=== PATIENT | female | born 1960 | race Caucasian/White ===

== ENCOUNTER 2020-11-13 18:21 | Inpatient (IN) | payer OTHER ==
[~2020-11-13] VITALS: Ht 162.6 cm; Wt 64.0 kg
[2020-11-13 19:37] LABS: Basophils # (auto) 0 10 ^3/uL (0-0.2); Basophils % (auto) 0.1 % (0.0-2.0); Eosinophils # (auto) 0 10 ^3/uL (0-0.8); Hematocrit 47.4 % (36.0-46.0); Hemoglobin 15.8 g/dL (12.2-16.2); Lymphocytes # (auto) 0.3 10 ^3/uL (0.4-5.4); Lymphocytes % (auto) 1.5 % (10.0-50.0); Mean Corpuscular Hemoglobin 30.2 pg (28.0-32.0); Mean Corpuscular Hgb Conc. 33.3 g/dL (32.0-36.0); Mean Corpuscular Volume 90.8 fL (80.0-100.0); Monocytes # (auto) 0.8 10 ^3/uL (0-1.3); Monocytes % (auto) 3.8 % (0.0-12.0); Neutrophils # (auto) 20.6 10 ^3/uL (1.6-8.6); Neutrophils % (auto) 94.6 % (37.0-80.0); Red Blood Cells 5.22 10^6/uL (4.0-5.20); Red Cell Distribution Width 13.1 % (11.8-14.3); White Blood Cell 21.8 10^3/uL (4.4-10.8)
[2020-11-13] MEDS ORDERED: SODIUM CHLORIDE 0.9% 1,000 ML IV ONE (19:45)
[2020-11-13] MEDS ORDERED: PANTOPRAZOLE 40 MG/10 ML VIAL INJ IV ONE (19:45)
[2020-11-13] MEDS ORDERED: PANTOPRAZOLE 40mg/50ML NS AE 50 ML IV ONE (19:45)
[2020-11-13 19:55] LABS: Alanine Aminotransferase 64 U/L (13-56); Albumin 4.3 g/dL (3.4-5.0); Anion Gap 9 (5-15); Aspartate Aminotransferase 113 U/L (15-37); BUN/Creatinine Ratio 24.3; Blood Alcohol < 3.0 mg/dL (0-5); Blood Urea Nitrogen 37 mg/dL (7-18); Calcium 9.2 mg/dL (8.5-10.1); Carbon Dioxide 26 mmol/L (21-32); Chloride 104 mmol/L (98-107); GFR African American 45 mL/min; GFR Non-African American 37 mL/min; Glucose 160 mg/dL (74-106); Magnesium 2.4 mg/dL (1.6-2.6); Potassium 4.1 mmol/L (3.5-5.1); Salicylate < 1.7 mg/dL (2.8-20.0); Sodium 139 mmol/L (136-145)
[2020-11-13 20:00] LABS: Acetaminophen 11.2 ug/mL (10-30)
[2020-11-13 20:06] LABS: Alkaline Phosphatase 128 U/L (45-117); Bilirubin, Total 0.5 mg/dL (0.2-1.0); Total Protein 8.3 g/dL (6.4-8.2)
[2020-11-13 20:45] LABS: Urine Bacteria NONE SEEN /hpf (None Seen); Urine Blood Negative /uL (Negative); Urine Hyaline Cast MANY /lpf (0 - 2); Urine Mucus FEW (None Seen); Urine Specific Gravity 1.036 (1.001-1.035); Urine WBC 2 /hpf (0 - 5)
[2020-11-13 21:12] LABS: Alcohol, Urine < 3.0 mg/dL (0-10); Amphetamine Screen, Urine NEGATIVE (NEGATIVE); Barbiturate Scree,Urine NEGATIVE (NEGATIVE); Benzodiazephine Screen, Urine NEGATIVE (NEGATIVE); Cannabinoid Screen, Urine NEGATIVE (NEGATIVE); Cocaine Screen, Urine NEGATIVE (NEGATIVE); Opiate Scree,Urine POSITIVE (NEGATIVE); Phencyclidine Screen, Urine NEGATIVE (NEGATIVE)
[2020-11-13 21:40] LABS: INR 1.05 (0.9-1.15); Partial Thromboplastin Time 24.5 sec (23.0-31.2)
[2020-11-14] MEDS ORDERED: HYDROcodone-ACET 5/325MG TAB PO PRN (01:15)
[2020-11-14] MEDS ORDERED: MORPHINE SULFATE 4 MG/ML SYR/VIAL IV PRN (01:15)
[2020-11-14] MEDS ORDERED: DOCUSATE SOD 100 MG CAP PO PRN (01:15)
[2020-11-14] MEDS ORDERED: NITROGLYCERIN 0.4 MG SL TAB SL PRN (01:15)
[2020-11-14] MEDS ORDERED: MORPHINE SULFATE INJECTION 2 MG/ML SYRG IV PRN (01:15)
[2020-11-14] MEDS ORDERED: DEXTROSE (50%) 50ML SYRG IV PRN (01:15)
[2020-11-14] MEDS ORDERED: ACETAMINOPHEN 325 MG TAB PO PRN (01:15)
[2020-11-14] MEDS ORDERED: SOD CHL 0.45% 1,000 ML IV SCH (01:30)
[2020-11-14] MEDS: DOXYCYCLINE 100MG/250ML 250 ML IV SCH ×2 (02:31→13:05)
[2020-11-14 02:41] VITALS: BP 114/83
[2020-11-14] MEDS ORDERED: HYDR-4902 PO (03:27)
[2020-11-14] MEDS: ACCU-CHEK COMFORT CURVE STRIP VI SCH ×4 (06:02→22:00)
[2020-11-14] MEDS: InsuLIN REG 1unit/0.01ml Soln (100units/ml) SC SCH ×3 (06:02→17:56)
[2020-11-14 08:05] VITALS: BP 114/71
[2020-11-14 08:28] LABS: Basophils # (auto) 0.1 10 ^3/uL (0-0.2); Basophils % (auto) 0.4 % (0.0-2.0); Eosinophils # (auto) 0 10 ^3/uL (0-0.8); Eosinophils % (auto) 0.2 % (0.0-7.0); Hematocrit 37.3 % (36.0-46.0); Hemoglobin 12.5 g/dL (12.2-16.2); Lymphocytes # (auto) 1.7 10 ^3/uL (0.4-5.4); Lymphocytes % (auto) 9.4 % (10.0-50.0); Mean Corpuscular Hemoglobin 30.1 pg (28.0-32.0); Mean Corpuscular Hgb Conc. 33.5 g/dL (32.0-36.0); Mean Corpuscular Volume 89.8 fL (80.0-100.0); Monocytes # (auto) 1.1 10 ^3/uL (0-1.3); Monocytes % (auto) 6.2 % (0.0-12.0); Neutrophils # (auto) 15.5 10 ^3/uL (1.6-8.6); Neutrophils % (auto) 83.8 % (37.0-80.0); Nucleated Red Blood Cells % 0.1 %; Red Blood Cells 4.15 10^6/uL (4.0-5.20); Red Cell Distribution Width 13.1 % (11.8-14.3); White Blood Cell 18.4 10^3/uL (4.4-10.8)
[2020-11-14 08:30] VITALS: BP 114/71
[2020-11-14 08:42] LABS: Albumin 3.3 g/dL (3.4-5.0); Potassium 4.3 mmol/L (3.5-5.1)
[2020-11-14 08:45] LABS: Bilirubin, Total 0.4 mg/dL (0.2-1.0); Total Protein 6.4 g/dL (6.4-8.2)
[2020-11-14] MEDS ORDERED: cefTRIAXone 1GM/50ML D5W 50 ML IV SCH (09:00)
[2020-11-14] MEDS: MULTIPLE VITAMIN TAB PO SCH (09:30)
[2020-11-14] MEDS: ZINC SULFATE 220mg CAP or TAB PO SCH (09:30)
[2020-11-14] MEDS: ASCORBIC ACID 500 MG TAB PO SCH ×2 (09:30→22:30)
[2020-11-14] MEDS: HEPARIN SODIUM (PORCINE) 5000 UNITS/ML 1ML VIAL SC SCH ×2 (09:32→22:32)
[2020-11-14] MEDS ORDERED: FAMOTIDINE (10MG/ML) 2ML VL IV SCH (10:00)
[2020-11-14] MEDS: ONDANSETRON HCL 4 MG/2 ML VIAL IV PRN (10:12)
[2020-11-14 12:30] VITALS: BP 118/78
[2020-11-14] MEDS ORDERED: SODIUM CHLORIDE 0.9% 1,000 ML IV ONE (13:15)
[2020-11-14 16:47] VITALS: BP 139/83
[2020-11-14] MEDS: PIPERACILLIN-TAZOB 3.375GM 100 ML IV SCH (17:56)
[2020-11-14] MEDS ORDERED: ZOLP12.52 PO (21:21)
[2020-11-14] MEDS ORDERED: OME20GT PO (21:21)
[2020-11-14] MEDS ORDERED: TRAZ1TAB12 PO (21:21)
[2020-11-14 21:51] LABS: Basophils # (auto) 0 10 ^3/uL (0-0.2); Basophils % (auto) 0.4 % (0.0-2.0); Eosinophils # (auto) 0.1 10 ^3/uL (0-0.8); Eosinophils % (auto) 0.8 % (0.0-7.0); Hematocrit 33.5 % (36.0-46.0); Hemoglobin 11.2 g/dL (12.2-16.2); Lymphocytes # (auto) 1.7 10 ^3/uL (0.4-5.4); Lymphocytes % (auto) 12.7 % (10.0-50.0); Mean Corpuscular Hemoglobin 30.3 pg (28.0-32.0); Mean Corpuscular Hgb Conc. 33.6 g/dL (32.0-36.0); Mean Corpuscular Volume 90.1 fL (80.0-100.0); Monocytes % (auto) 7.6 % (0.0-12.0); Neutrophils # (auto) 10.3 10 ^3/uL (1.6-8.6); Neutrophils % (auto) 78.5 % (37.0-80.0); Red Blood Cells 3.71 10^6/uL (4.0-5.20); Red Cell Distribution Width 13.3 % (11.8-14.3); White Blood Cell 13.1 10^3/uL (4.4-10.8)
[2020-11-14 22:00] VITALS: BP 116/75
[2020-11-14] MEDS ORDERED: InsuLIN REG 1unit/0.01ml Soln (100units/ml) SC SCH (22:00)
[2020-11-14 22:13] LABS: Albumin 3.2 g/dL (3.4-5.0); Calcium 8.1 mg/dL (8.5-10.1); Potassium 3.9 mmol/L (3.5-5.1)
[2020-11-14 22:16] LABS: BUN/Creatinine Ratio 31.2; Bilirubin, Total 0.4 mg/dL (0.2-1.0); Total Protein 6.1 g/dL (6.4-8.2)
[2020-11-14] MEDS: PANTOPRAZOLE 40 MG/10 ML VIAL INJ IV SCH (22:30)
[2020-11-14] MEDS ORDERED: ACETYLCYSTEINE PO FOR APAP TOX 200 MG/ML ML PO ONE (23:30)
[2020-11-15] MEDS: PIPERACILLIN-TAZOB 3.375GM 100 ML IV SCH ×4 (00:02→18:06)
[2020-11-15] MEDS ORDERED: ACETYLCYSTEINE PO FOR APAP TOX 200 MG/ML ML PO ONE (01:00)
[2020-11-15] MEDS ORDERED: ACETYLCYSTEINE PO FOR APAP TOX 200 MG/ML ML PO SCH (03:30)
[2020-11-15 05:00] VITALS: BP 134/75
[2020-11-15] MEDS: ACETYLCYSTEINE PO FOR APAP TOX 200 MG/ML ML PO SCH ×5 (05:29→21:01)
[2020-11-15] MEDS: InsuLIN REG 1unit/0.01ml Soln (100units/ml) SC SCH (06:01)
[2020-11-15] MEDS: ACCU-CHEK COMFORT CURVE STRIP VI SCH (06:02)
[2020-11-15 08:13] LABS: Basophils # (auto) 0.1 10 ^3/uL (0-0.2); Basophils % (auto) 0.5 % (0.0-2.0); Eosinophils # (auto) 0.2 10 ^3/uL (0-0.8); Eosinophils % (auto) 2.1 % (0.0-7.0); Lymphocytes % (auto) 17.5 % (10.0-50.0); Monocytes # (auto) 1.1 10 ^3/uL (0-1.3); Monocytes % (auto) 9.6 % (0.0-12.0); Neutrophils # (auto) 7.9 10 ^3/uL (1.6-8.6); Neutrophils % (auto) 70.3 % (37.0-80.0); Nucleated Red Blood Cells % 0.1 %
[2020-11-15 08:16] LABS: Hematocrit 36.3 % (36.0-46.0); Hemoglobin 11.6 g/dL (12.2-16.2); Mean Corpuscular Hemoglobin 30.5 pg (28.0-32.0); Mean Corpuscular Hgb Conc. 32.1 g/dL (32.0-36.0); Red Blood Cells 3.82 10^6/uL (4.0-5.20); Red Cell Distribution Width 13.8 % (11.8-14.3); White Blood Cell 11.1 10^3/uL (4.4-10.8)
[2020-11-15 08:23] LABS: Albumin 3.2 g/dL (3.4-5.0); Calcium 8.5 mg/dL (8.5-10.1); Magnesium 2.2 mg/dL (1.6-2.6); Potassium 3.6 mmol/L (3.5-5.1)
[2020-11-15 08:26] LABS: BUN/Creatinine Ratio 21.2; Bilirubin, Total 0.5 mg/dL (0.2-1.0); Total Protein 6.4 g/dL (6.4-8.2)
[2020-11-15 08:30] VITALS: BP 126/78
[2020-11-15] MEDS ORDERED: VANCOMYCIN PER PHARMACY 0 MG IV SCH (08:45)
[2020-11-15] MEDS ORDERED: VANCOMYCIN 500 MG in D5W 5% 100 ML IV SCH (09:00)
[2020-11-15] MEDS: ZINC SULFATE 220mg CAP or TAB PO SCH (09:59)
[2020-11-15] MEDS: ASCORBIC ACID 500 MG TAB PO SCH ×2 (09:59→22:21)
[2020-11-15] MEDS: VANCOMYCIN 1GM/250ML 250 ML IV SCH ×2 (09:59→21:01)
[2020-11-15] MEDS: MULTIPLE VITAMIN TAB PO SCH (09:59)
[2020-11-15] MEDS: PANTOPRAZOLE 40 MG/10 ML VIAL INJ IV SCH ×2 (10:00→22:21)
[2020-11-15] MEDS: HEPARIN SODIUM (PORCINE) 5000 UNITS/ML 1ML VIAL SC SCH ×2 (11:20→22:22)
[2020-11-15 13:27] VITALS: BP 125/79
[2020-11-15 17:10] VITALS: BP 122/76
[2020-11-15 22:00] VITALS: BP 124/78
[2020-11-15] MEDS: traZODone HCL 50 MG TAB PO SCH (22:21)
[2020-11-15 23:30] VITALS: BP 124/78
[2020-11-16] MEDS: PIPERACILLIN-TAZOB 3.375GM 100 ML IV SCH ×5 (00:15→23:43)
[2020-11-16 01:31] LABS: Alanine Aminotransferase 215 U/L (13-56); Aspartate Aminotransferase 126 U/L (15-37)
[2020-11-16 01:32] LABS: INR 1.04 (0.9-1.15)
[2020-11-16 02:14] VITALS: BP 124/78
[2020-11-16 05:00] VITALS: BP 123/74
[2020-11-16 07:25] LABS: Basophils # (auto) 0.1 10 ^3/uL (0-0.2); Basophils % (auto) 0.7 % (0.0-2.0); Eosinophils # (auto) 0.2 10 ^3/uL (0-0.8); Eosinophils % (auto) 2.4 % (0.0-7.0); Hematocrit 33.7 % (36.0-46.0); Hemoglobin 11.5 g/dL (12.2-16.2); Lymphocytes # (auto) 1.7 10 ^3/uL (0.4-5.4); Lymphocytes % (auto) 24.5 % (10.0-50.0); Mean Corpuscular Hemoglobin 30.3 pg (28.0-32.0); Mean Corpuscular Hgb Conc. 34.3 g/dL (32.0-36.0); Mean Corpuscular Volume 88.4 fL (80.0-100.0); Monocytes # (auto) 0.7 10 ^3/uL (0-1.3); Monocytes % (auto) 9.8 % (0.0-12.0); Neutrophils # (auto) 4.4 10 ^3/uL (1.6-8.6); Neutrophils % (auto) 62.6 % (37.0-80.0); Red Blood Cells 3.81 10^6/uL (4.0-5.20)
[2020-11-16 07:44] LABS: Potassium 3.3 mmol/L (3.5-5.1)
[2020-11-16 07:58] LABS: Albumin 2.9 g/dL (3.4-5.0); BUN/Creatinine Ratio 11.1; Bilirubin, Total 0.5 mg/dL (0.2-1.0); Calcium 8.5 mg/dL (8.5-10.1)
[2020-11-16 09:00] VITALS: BP 113/69
[2020-11-16] MEDS: VANCOMYCIN 1GM/250ML 250 ML IV SCH ×2 (09:57→22:09)
[2020-11-16] MEDS: PANTOPRAZOLE 40 MG/10 ML VIAL INJ IV SCH ×2 (09:59→22:18)
[2020-11-16] MEDS: MULTIPLE VITAMIN TAB PO SCH (09:59)
[2020-11-16] MEDS: ZINC SULFATE 220mg CAP or TAB PO SCH (09:59)
[2020-11-16] MEDS: ASCORBIC ACID 500 MG TAB PO SCH ×2 (10:00→22:19)
[2020-11-16] MEDS: HEPARIN SODIUM (PORCINE) 5000 UNITS/ML 1ML VIAL SC SCH ×2 (10:01→22:19)
[2020-11-16 13:00] VITALS: BP 122/76
[2020-11-16 17:00] VITALS: BP 135/90
[2020-11-16 22:00] VITALS: BP 124/78
[2020-11-16] MEDS: SERTRALINE HCL 50 MG TAB PO SCH (22:18)
[2020-11-16] MEDS: traZODone HCL 50 MG TAB PO SCH (22:18)
[2020-11-17 05:12] VITALS: BP 127/79
[2020-11-17] MEDS: PIPERACILLIN-TAZOB 3.375GM 100 ML IV SCH ×2 (05:46→12:00)
[2020-11-17 08:58] VITALS: BP 135/84
[2020-11-17] MEDS: MULTIPLE VITAMIN TAB PO SCH (09:56)
[2020-11-17] MEDS: ASCORBIC ACID 500 MG TAB PO SCH ×2 (09:58→22:21)
[2020-11-17] MEDS: ZINC SULFATE 220mg CAP or TAB PO SCH (09:58)
[2020-11-17] MEDS: SERTRALINE HCL 50 MG TAB PO SCH (09:58)
[2020-11-17] MEDS: HEPARIN SODIUM (PORCINE) 5000 UNITS/ML 1ML VIAL SC SCH ×2 (09:59→22:16)
[2020-11-17] MEDS: PANTOPRAZOLE 40 MG/10 ML VIAL INJ IV SCH ×2 (09:59→22:15)
[2020-11-17] MEDS: VANCOMYCIN 1GM/250ML 250 ML IV SCH (10:03)
[2020-11-17 13:00] VITALS: BP 114/71
[2020-11-17] MEDS ORDERED: MICAFUNGIN SODIUM 100 MG in SODIUM CHL 0.9% 100 ML IV ONE (16:30)
[2020-11-17 16:58] VITALS: BP 136/80
[2020-11-17] MEDS: ONDANSETRON HCL 4 MG/2 ML VIAL IV PRN ×2 (17:31→22:19)
[2020-11-17] MEDS: SUCRALFATE 1 GM/10 ML ORAL SUSP PO SCH ×2 (17:35→22:16)
[2020-11-17] MEDS ORDERED: VANCOMYCIN 1GM/250ML 250 ML IV SCH (20:00)
[2020-11-17 22:00] VITALS: BP 138/84
[2020-11-17] MEDS: AMOXICILLIN/CLAVUL 875 MG TAB PO SCH (22:20)
[2020-11-17] MEDS: traZODone HCL 50 MG TAB PO SCH (22:21)
[2020-11-18] VITALS (7 sets, daily range): BP systolic 127–146; BP diastolic 72–92
[2020-11-18] MEDS: SUCRALFATE 1 GM/10 ML ORAL SUSP PO SCH ×4 (06:12→22:10)
[2020-11-18] MEDS: ASCORBIC ACID 500 MG TAB PO SCH ×2 (09:22→22:11)
[2020-11-18] MEDS: MULTIPLE VITAMIN TAB PO SCH (09:22)
[2020-11-18] MEDS: ZINC SULFATE 220mg CAP or TAB PO SCH (09:23)
[2020-11-18] MEDS: MICAFUNGIN SODIUM 100 MG in SODIUM CHL 0.9% 100 ML IV SCH (09:24)
[2020-11-18] MEDS: SERTRALINE HCL 50 MG TAB PO SCH (09:26)
[2020-11-18] MEDS: HEPARIN SODIUM (PORCINE) 5000 UNITS/ML 1ML VIAL SC SCH ×2 (09:26→22:11)
[2020-11-18] MEDS: PANTOPRAZOLE 40 MG/10 ML VIAL INJ IV SCH ×2 (10:00→22:10)
[2020-11-18 10:52] LABS: Basophils # (auto) 0 10 ^3/uL (0-0.2); Basophils % (auto) 0.7 % (0.0-2.0); Eosinophils # (auto) 0.1 10 ^3/uL (0-0.8); Eosinophils % (auto) 2.3 % (0.0-7.0); Hemoglobin 11.8 g/dL (12.2-16.2); Lymphocytes # (auto) 1.5 10 ^3/uL (0.4-5.4); Lymphocytes % (auto) 23.9 % (10.0-50.0); Mean Corpuscular Hemoglobin 30.3 pg (28.0-32.0); Mean Corpuscular Hgb Conc. 33.8 g/dL (32.0-36.0); Mean Corpuscular Volume 89.6 fL (80.0-100.0); Monocytes # (auto) 0.6 10 ^3/uL (0-1.3); Monocytes % (auto) 9.9 % (0.0-12.0); Neutrophils # (auto) 3.9 10 ^3/uL (1.6-8.6); Neutrophils % (auto) 63.2 % (37.0-80.0); Nucleated Red Blood Cells % 0.1 %; Red Cell Distribution Width 13.2 % (11.8-14.3); White Blood Cell 6.1 10^3/uL (4.4-10.8)
[2020-11-18 11:11] LABS: Albumin 3.1 g/dL (3.4-5.0); Calcium 8.6 mg/dL (8.5-10.1); Potassium 3.3 mmol/L (3.5-5.1)
[2020-11-18 11:15] LABS: BUN/Creatinine Ratio 11.4; Bilirubin, Total 0.5 mg/dL (0.2-1.0); Total Protein 6.4 g/dL (6.4-8.2)
[2020-11-18] MEDS: AMOXICILLIN/CLAVUL 875 MG TAB PO SCH ×2 (14:01→22:10)
[2020-11-18] MEDS: traZODone HCL 50 MG TAB PO SCH (22:10)
[2020-11-19 05:00] VITALS: BP 114/89
[2020-11-19] MEDS: SUCRALFATE 1 GM/10 ML ORAL SUSP PO SCH ×4 (06:01→22:05)
[2020-11-19 06:33] LABS: INR 0.94 (0.9-1.15); Partial Thromboplastin Time 25.4 sec (23.0-31.2)
[2020-11-19] MEDS: HEPARIN SODIUM (PORCINE) 5000 UNITS/ML 1ML VIAL SC SCH ×2 (07:38→22:06)
[2020-11-19] MEDS: ONDANSETRON HCL 4 MG/2 ML VIAL IV PRN ×2 (08:55→22:08)
[2020-11-19 09:22] VITALS: BP 133/82
[2020-11-19] MEDS: MICAFUNGIN SODIUM 100 MG in SODIUM CHL 0.9% 100 ML IV SCH (10:05)
[2020-11-19] MEDS: PANTOPRAZOLE 40 MG/10 ML VIAL INJ IV SCH ×2 (10:05→22:04)
[2020-11-19 10:09] LABS: Albumin 3.1 g/dL (3.4-5.0); Calcium 8.5 mg/dL (8.5-10.1); Potassium 3.3 mmol/L (3.5-5.1)
[2020-11-19 10:12] LABS: BUN/Creatinine Ratio 13.7; Bilirubin, Total 0.4 mg/dL (0.2-1.0); Total Protein 6.3 g/dL (6.4-8.2)
[2020-11-19] MEDS ORDERED: POTASSIUM CHL 20MEQ/100ML 100 ML IV ONE (10:30)
[2020-11-19] MEDS ORDERED: ONDANSETRON HCL 4 MG/2 ML VIAL ONE (12:08)
[2020-11-19] MEDS ORDERED: PROPOFOL 10 MG/ML 20 ML IV ONE (12:08)
[2020-11-19] MEDS ORDERED: MIDAZOLAM HCL 2MG/2ML 2ml VIAL (1mg/ml) ONE (12:08)
[2020-11-19] MEDS ORDERED: SODIUM CHLORIDE LOCK 10 ML ONE (12:08)
[2020-11-19] MEDS ORDERED: fentaNYL CITRATE 100 MCG/2 ML VL ONE (12:08)
[2020-11-19] MEDS ORDERED: MORPHINE SULFATE 4 MG/ML SYR/VIAL IV PRN (12:15)
[2020-11-19] MEDS ORDERED: ACCU-CHEK COMFORT CURVE STRIP VI ONE (12:15)
[2020-11-19] MEDS ORDERED: HYDROmorphone HCL 2 MG/ML VL IV PRN (12:15)
[2020-11-19] MEDS ORDERED: ONDANSETRON HCL 4 MG/2 ML VIAL IV PRN (12:15)
[2020-11-19 13:23] VITALS: BP 132/82
[2020-11-19] MEDS: AMOXICILLIN/CLAVUL 875 MG TAB PO SCH ×2 (13:33→22:04)
[2020-11-19] MEDS: MULTIPLE VITAMIN TAB PO SCH (13:34)
[2020-11-19] MEDS: SERTRALINE HCL 50 MG TAB PO SCH (13:35)
[2020-11-19 13:37] VITALS: BP 132/82
[2020-11-19] MEDS: POTASSIUM CHL 20MEQ/100ML 100 ML IV SCH ×2 (15:07→17:22)
[2020-11-19 17:00] VITALS: BP 132/85
[2020-11-19 22:00] VITALS: BP 122/76
[2020-11-19] MEDS: traZODone HCL 50 MG TAB PO SCH (22:05)
[2020-11-20 05:00] VITALS: BP 131/68
[2020-11-20 06:16] VITALS: BP 131/68
[2020-11-20 06:50] LABS: Potassium 3.8 mmol/L (3.5-5.1)
[2020-11-20] MEDS: SUCRALFATE 1 GM/10 ML ORAL SUSP PO SCH ×4 (06:57→21:59)
[2020-11-20 09:00] VITALS: BP 125/68
[2020-11-20] MEDS: MICAFUNGIN SODIUM 100 MG in SODIUM CHL 0.9% 100 ML IV SCH (10:01)
[2020-11-20] MEDS: PANTOPRAZOLE 40 MG/10 ML VIAL INJ IV SCH ×2 (10:01→21:59)
[2020-11-20] MEDS: MULTIPLE VITAMIN TAB PO SCH (10:01)
[2020-11-20] MEDS: AMOXICILLIN/CLAVUL 875 MG TAB PO SCH ×2 (10:01→21:59)
[2020-11-20] MEDS: SERTRALINE HCL 50 MG TAB PO SCH (10:01)
[2020-11-20] MEDS: HEPARIN SODIUM (PORCINE) 5000 UNITS/ML 1ML VIAL SC SCH ×2 (10:02→22:00)
[2020-11-20 13:00] VITALS: BP 121/74
[2020-11-20 17:00] VITALS: BP 135/76
[2020-11-20] MEDS: ONDANSETRON HCL 4 MG/2 ML VIAL IV PRN (17:25)
[2020-11-20] MEDS: traZODone HCL 50 MG TAB PO SCH (21:59)
[2020-11-20 22:23] VITALS: BP 137/69
[2020-11-21 05:16] VITALS: BP 129/83
[2020-11-21] MEDS: SUCRALFATE 1 GM/10 ML ORAL SUSP PO SCH ×4 (06:04→22:38)
[2020-11-21 09:26] VITALS: BP 132/76
[2020-11-21] MEDS: MICAFUNGIN SODIUM 100 MG in SODIUM CHL 0.9% 100 ML IV SCH (10:40)
[2020-11-21] MEDS: SERTRALINE HCL 50 MG TAB PO SCH (10:41)
[2020-11-21] MEDS: AMOXICILLIN/CLAVUL 875 MG TAB PO SCH ×2 (10:41→22:44)
[2020-11-21] MEDS: HEPARIN SODIUM (PORCINE) 5000 UNITS/ML 1ML VIAL SC SCH ×2 (10:41→22:39)
[2020-11-21] MEDS: PANTOPRAZOLE 40 MG/10 ML VIAL INJ IV SCH ×2 (10:42→22:38)
[2020-11-21] MEDS: MULTIPLE VITAMIN TAB PO SCH (10:42)
[2020-11-21] MEDS: ONDANSETRON HCL 4 MG/2 ML VIAL IV PRN (13:03)
[2020-11-21 13:45] VITALS: BP 118/72
[2020-11-21 16:52] VITALS: BP 116/73
[2020-11-21 22:00] VITALS: BP 145/83
[2020-11-21 22:30] VITALS: BP 145/83
[2020-11-21] MEDS: traZODone HCL 50 MG TAB PO SCH (22:38)
[2020-11-22 05:00] VITALS: BP 148/87
[2020-11-22] MEDS: SUCRALFATE 1 GM/10 ML ORAL SUSP PO SCH ×4 (06:25→23:25)
[2020-11-22 06:49] LABS: Potassium 3.3 mmol/L (3.5-5.1)
[2020-11-22 07:06] LABS: Albumin 3.1 g/dL (3.4-5.0); BUN/Creatinine Ratio 11.3; Bilirubin, Total 0.4 mg/dL (0.2-1.0); Calcium 8.6 mg/dL (8.5-10.1); Total Protein 6.3 g/dL (6.4-8.2)
[2020-11-22 09:00] VITALS: BP 126/73
[2020-11-22] MEDS: MULTIPLE VITAMIN TAB PO SCH (09:50)
[2020-11-22] MEDS: SERTRALINE HCL 50 MG TAB PO SCH (09:51)
[2020-11-22] MEDS: PANTOPRAZOLE 40 MG/10 ML VIAL INJ IV SCH ×2 (09:52→23:25)
[2020-11-22] MEDS: MICAFUNGIN SODIUM 100 MG in SODIUM CHL 0.9% 100 ML IV SCH (09:52)
[2020-11-22] MEDS: AMOXICILLIN/CLAVUL 875 MG TAB PO SCH ×2 (10:16→23:25)
[2020-11-22] MEDS: HEPARIN SODIUM (PORCINE) 5000 UNITS/ML 1ML VIAL SC SCH ×2 (10:16→23:27)
[2020-11-22 13:00] VITALS: BP 134/88
[2020-11-22 16:53] VITALS: BP 127/73
[2020-11-22 22:00] VITALS: BP 134/77
[2020-11-22] MEDS: traZODone HCL 50 MG TAB PO SCH (23:26)
[2020-11-23 05:00] VITALS: BP 127/82
[2020-11-23] MEDS: SUCRALFATE 1 GM/10 ML ORAL SUSP PO SCH ×4 (06:29→21:58)
[2020-11-23 09:00] VITALS: BP 141/85
[2020-11-23] MEDS: SERTRALINE HCL 50 MG TAB PO SCH (10:11)
[2020-11-23] MEDS: MULTIPLE VITAMIN TAB PO SCH (10:11)
[2020-11-23] MEDS: MICAFUNGIN SODIUM 100 MG in SODIUM CHL 0.9% 100 ML IV SCH (10:11)
[2020-11-23] MEDS: PANTOPRAZOLE 40 MG/10 ML VIAL INJ IV SCH ×2 (10:11→21:57)
[2020-11-23] MEDS: HEPARIN SODIUM (PORCINE) 5000 UNITS/ML 1ML VIAL SC SCH ×2 (10:13→21:58)
[2020-11-23] MEDS: AMOXICILLIN/CLAVUL 875 MG TAB PO SCH ×2 (10:32→21:57)
[2020-11-23] MEDS ORDERED: POTASSIUM CHL 20 Meq TABLET PO ONE (12:15)
[2020-11-23 13:00] VITALS: BP 116/66
[2020-11-23] MEDS: traZODone HCL 50 MG TAB PO SCH (21:58)
[2020-11-23 22:00] VITALS: BP 127/70
[2020-11-24 05:00] VITALS: BP 140/92
[2020-11-24] MEDS: SUCRALFATE 1 GM/10 ML ORAL SUSP PO SCH ×4 (06:29→21:32)
[2020-11-24 08:17] LABS: Basophils # (auto) 0.1 10 ^3/uL (0-0.2); Eosinophils # (auto) 0.2 10 ^3/uL (0-0.8); Eosinophils % (auto) 2.1 % (0.0-7.0); Hematocrit 33.4 % (36.0-46.0); Hemoglobin 11.7 g/dL (12.2-16.2); Lymphocytes # (auto) 1.7 10 ^3/uL (0.4-5.4); Mean Corpuscular Hemoglobin 31.4 pg (28.0-32.0); Mean Corpuscular Hgb Conc. 35.1 g/dL (32.0-36.0); Mean Corpuscular Volume 89.4 fL (80.0-100.0); Monocytes # (auto) 0.5 10 ^3/uL (0-1.3); Monocytes % (auto) 6.9 % (0.0-12.0); Neutrophils # (auto) 5.4 10 ^3/uL (1.6-8.6); Nucleated Red Blood Cells % 0.1 %; Red Blood Cells 3.73 10^6/uL (4.0-5.20); Red Cell Distribution Width 13.7 % (11.8-14.3); White Blood Cell 7.9 10^3/uL (4.4-10.8)
[2020-11-24] MEDS: AMOXICILLIN/CLAVUL 875 MG TAB PO SCH (08:39)
[2020-11-24] MEDS: MULTIPLE VITAMIN TAB PO SCH (08:39)
[2020-11-24] MEDS: SERTRALINE HCL 50 MG TAB PO SCH (08:39)
[2020-11-24] MEDS: PANTOPRAZOLE 40 MG/10 ML VIAL INJ IV SCH ×2 (08:40→21:32)
[2020-11-24] MEDS: MICAFUNGIN SODIUM 100 MG in SODIUM CHL 0.9% 100 ML IV SCH (08:40)
[2020-11-24 08:58] LABS: Albumin 3.3 g/dL (3.4-5.0); Calcium 8.9 mg/dL (8.5-10.1); Potassium 3.9 mmol/L (3.5-5.1)
[2020-11-24 09:00] VITALS: BP 127/82
[2020-11-24] MEDS: ONDANSETRON HCL 4 MG/2 ML VIAL IV PRN ×2 (09:00→18:59)
[2020-11-24 09:03] LABS: BUN/Creatinine Ratio 12.5; Bilirubin, Total 0.4 mg/dL (0.2-1.0); Total Protein 6.6 g/dL (6.4-8.2)
[2020-11-24] MEDS: HEPARIN SODIUM (PORCINE) 5000 UNITS/ML 1ML VIAL SC SCH ×2 (10:00→21:34)
[2020-11-24 13:00] VITALS: BP 109/62
[2020-11-24 17:00] VITALS: BP 120/74
[2020-11-24] MEDS: traZODone HCL 50 MG TAB PO SCH (21:33)
[2020-11-24 22:00] VITALS: BP 123/72
[2020-11-25 01:14] VITALS: BP 120/74
[2020-11-25 05:00] VITALS: BP 140/88
[2020-11-25] MEDS: SUCRALFATE 1 GM/10 ML ORAL SUSP PO SCH ×4 (06:11→21:42)
[2020-11-25 09:00] VITALS: BP 137/81
[2020-11-25] MEDS: MICAFUNGIN SODIUM 100 MG in SODIUM CHL 0.9% 100 ML IV SCH (09:18)
[2020-11-25] MEDS: MULTIPLE VITAMIN TAB PO SCH (09:19)
[2020-11-25] MEDS: PANTOPRAZOLE 40 MG/10 ML VIAL INJ IV SCH ×2 (09:19→21:41)
[2020-11-25] MEDS: SERTRALINE HCL 50 MG TAB PO SCH (09:19)
[2020-11-25] MEDS: HEPARIN SODIUM (PORCINE) 5000 UNITS/ML 1ML VIAL SC SCH ×2 (09:39→21:43)
[2020-11-25 13:00] VITALS: BP 133/80
[2020-11-25 17:00] VITALS: BP 134/75
[2020-11-25] MEDS: traZODone HCL 50 MG TAB PO SCH (21:42)
[2020-11-25] MEDS: SENNA 8.6 MG TAB PO SCH (21:42)
[2020-11-25] MEDS: DOCUSATE SOD 100 MG CAP PO SCH (21:42)
[2020-11-25 22:00] VITALS: BP 132/86
[2020-11-26 05:00] VITALS: BP 139/86
[2020-11-26] MEDS: SUCRALFATE 1 GM/10 ML ORAL SUSP PO SCH ×4 (06:17→22:18)
[2020-11-26 07:03] LABS: Eosinophils # (auto) 0.2 10 ^3/uL (0-0.8); Red Blood Cells 4.05 10^6/uL (4.0-5.20)
[2020-11-26 07:06] LABS: Basophils # (auto) 0 10 ^3/uL (0-0.2); Basophils % (auto) 0.6 % (0.0-2.0); Eosinophils % (auto) 2.1 % (0.0-7.0); Hematocrit 36.6 % (36.0-46.0); Hemoglobin 12.3 g/dL (12.2-16.2); Lymphocytes # (auto) 2.5 10 ^3/uL (0.4-5.4); Lymphocytes % (auto) 34.5 % (10.0-50.0); Mean Corpuscular Hemoglobin 30.4 pg (28.0-32.0); Mean Corpuscular Hgb Conc. 33.7 g/dL (32.0-36.0); Mean Corpuscular Volume 90.2 fL (80.0-100.0); Monocytes # (auto) 0.5 10 ^3/uL (0-1.3); Monocytes % (auto) 7.1 % (0.0-12.0); Neutrophils # (auto) 4.1 10 ^3/uL (1.6-8.6); Neutrophils % (auto) 55.7 % (37.0-80.0); Red Cell Distribution Width 13.6 % (11.8-14.3); White Blood Cell 7.4 10^3/uL (4.4-10.8)
[2020-11-26 07:19] LABS: Calcium 8.9 mg/dL (8.5-10.1); Potassium 4.1 mmol/L (3.5-5.1)
[2020-11-26 07:23] LABS: BUN/Creatinine Ratio 12.2; Magnesium 2.4 mg/dL (1.6-2.6)
[2020-11-26 09:00] VITALS: BP 117/81
[2020-11-26] MEDS: MICAFUNGIN SODIUM 100 MG in SODIUM CHL 0.9% 100 ML IV SCH (09:42)
[2020-11-26] MEDS: SERTRALINE HCL 50 MG TAB PO SCH (09:42)
[2020-11-26] MEDS: MULTIPLE VITAMIN TAB PO SCH (09:42)
[2020-11-26] MEDS: DOCUSATE SOD 100 MG CAP PO SCH ×3 (09:42→22:18)
[2020-11-26] MEDS: PANTOPRAZOLE 40 MG/10 ML VIAL INJ IV SCH ×2 (09:43→22:18)
[2020-11-26] MEDS: HEPARIN SODIUM (PORCINE) 5000 UNITS/ML 1ML VIAL SC SCH ×2 (09:43→22:19)
[2020-11-26 13:00] VITALS: BP 134/87
[2020-11-26 16:34] VITALS: BP 135/86
[2020-11-26 22:00] VITALS: BP 125/80
[2020-11-26] MEDS: SENNA 8.6 MG TAB PO SCH (22:18)
[2020-11-26] MEDS: traZODone HCL 50 MG TAB PO SCH (22:18)
[2020-11-27 05:00] VITALS: BP 137/86
[2020-11-27] MEDS: SUCRALFATE 1 GM/10 ML ORAL SUSP PO SCH ×5 (06:22→22:09)
[2020-11-27 09:00] VITALS: BP 140/84
[2020-11-27] MEDS: MULTIPLE VITAMIN TAB PO SCH (10:27)
[2020-11-27] MEDS: PANTOPRAZOLE 40 MG/10 ML VIAL INJ IV SCH ×2 (10:27→22:08)
[2020-11-27] MEDS: DOCUSATE SOD 100 MG CAP PO SCH ×2 (10:27→22:00)
[2020-11-27] MEDS: SERTRALINE HCL 50 MG TAB PO SCH (10:36)
[2020-11-27] MEDS: HEPARIN SODIUM (PORCINE) 5000 UNITS/ML 1ML VIAL SC SCH ×2 (10:41→22:11)
[2020-11-27 17:00] VITALS: BP 134/86
[2020-11-27 17:35] VITALS: BP 134/86
[2020-11-27 22:00] VITALS: BP 118/74
[2020-11-27] MEDS: SENNA 8.6 MG TAB PO SCH (22:00)
[2020-11-27] MEDS: traZODone HCL 50 MG TAB PO SCH (22:09)
[2020-11-28 05:00] VITALS: BP 146/83
[2020-11-28] MEDS: SUCRALFATE 1 GM/10 ML ORAL SUSP PO SCH ×4 (06:33→22:37)
[2020-11-28 09:01] VITALS: BP 118/73
[2020-11-28] MEDS: MULTIPLE VITAMIN TAB PO SCH (09:59)
[2020-11-28] MEDS: SERTRALINE HCL 50 MG TAB PO SCH (09:59)
[2020-11-28] MEDS: PANTOPRAZOLE 40 MG/10 ML VIAL INJ IV SCH ×2 (09:59→22:37)
[2020-11-28] MEDS: DOCUSATE SOD 100 MG CAP PO SCH ×2 (09:59→22:00)
[2020-11-28] MEDS: HEPARIN SODIUM (PORCINE) 5000 UNITS/ML 1ML VIAL SC SCH ×2 (10:01→22:38)
[2020-11-28 13:00] VITALS: BP 120/76
[2020-11-28 17:00] VITALS: BP 130/86
[2020-11-28 22:00] VITALS: BP 121/78
[2020-11-28] MEDS: SENNA 8.6 MG TAB PO SCH (22:00)
[2020-11-28] MEDS: traZODone HCL 50 MG TAB PO SCH (22:38)
[2020-11-29 05:00] VITALS: BP 142/88
[2020-11-29] MEDS: SUCRALFATE 1 GM/10 ML ORAL SUSP PO SCH ×4 (05:54→22:00)
[2020-11-29 09:00] VITALS: BP 161/83
[2020-11-29] MEDS: DOCUSATE SOD 100 MG CAP PO SCH ×2 (10:00→22:00)
[2020-11-29] MEDS: MULTIPLE VITAMIN TAB PO SCH (10:30)
[2020-11-29] MEDS: SERTRALINE HCL 50 MG TAB PO SCH (10:31)
[2020-11-29] MEDS: PANTOPRAZOLE 40 MG TAB PO SCH ×2 (10:31→23:18)
[2020-11-29] MEDS: HEPARIN SODIUM (PORCINE) 5000 UNITS/ML 1ML VIAL SC SCH ×2 (10:32→23:19)
[2020-11-29] MEDS: ALPRAZolam 0.5 MG TAB PO PRN (10:32)
[2020-11-29 13:00] VITALS: BP 122/82
[2020-11-29] MEDS ORDERED: ALPRAZolam 0.5 MG TAB PO SCH (14:00)
[2020-11-29 17:00] VITALS: BP 129/86
[2020-11-29 22:00] VITALS: BP 137/85
[2020-11-29] MEDS: SENNA 8.6 MG TAB PO SCH (22:00)
[2020-11-29] MEDS: traZODone HCL 50 MG TAB PO SCH (23:17)
[2020-11-30 05:00] VITALS: BP 138/89
[2020-11-30] MEDS: SUCRALFATE 1 GM/10 ML ORAL SUSP PO SCH ×4 (06:14→21:22)
[2020-11-30 09:00] VITALS: BP 135/84
[2020-11-30] MEDS: DOCUSATE SOD 100 MG CAP PO SCH ×2 (10:00→21:43)
[2020-11-30] MEDS: MULTIPLE VITAMIN TAB PO SCH (10:27)
[2020-11-30] MEDS: SERTRALINE HCL 50 MG TAB PO SCH (10:27)
[2020-11-30] MEDS: PANTOPRAZOLE 40 MG TAB PO SCH ×2 (10:27→21:23)
[2020-11-30] MEDS: ALPRAZolam 0.5 MG TAB PO PRN ×3 (10:28→21:22)
[2020-11-30] MEDS: HEPARIN SODIUM (PORCINE) 5000 UNITS/ML 1ML VIAL SC SCH ×2 (10:30→21:20)
[2020-11-30 13:00] VITALS: BP 135/86
[2020-11-30 17:00] VITALS: BP 129/83
[2020-11-30 18:26] VITALS: BP 129/83
[2020-11-30] MEDS: traZODone HCL 50 MG TAB PO SCH (21:22)
[2020-11-30] MEDS: SENNA 8.6 MG TAB PO SCH (21:23)
[2020-11-30 22:07] VITALS: BP 137/91
[2020-12-01 05:14] VITALS: BP 110/70
[2020-12-01] MEDS: SUCRALFATE 1 GM/10 ML ORAL SUSP PO SCH ×4 (06:52→21:59)
[2020-12-01 09:00] VITALS: BP 114/76
[2020-12-01] MEDS: DOCUSATE SOD 100 MG CAP PO SCH ×2 (10:00→22:00)
[2020-12-01] MEDS: HEPARIN SODIUM (PORCINE) 5000 UNITS/ML 1ML VIAL SC SCH ×2 (10:09→22:03)
[2020-12-01] MEDS: MULTIPLE VITAMIN TAB PO SCH (10:11)
[2020-12-01] MEDS: SERTRALINE HCL 50 MG TAB PO SCH (10:11)
[2020-12-01] MEDS: PANTOPRAZOLE 40 MG TAB PO SCH ×2 (10:11→21:59)
[2020-12-01] MEDS: ALPRAZolam 0.5 MG TAB PO PRN ×3 (10:11→22:04)
[2020-12-01 13:00] VITALS: BP 117/74
[2020-12-01 17:00] VITALS: BP 118/74
[2020-12-01 17:14] LABS: Basophils # (auto) 0.1 10 ^3/uL (0-0.2); Basophils % (auto) 0.9 % (0.0-2.0); Eosinophils # (auto) 0.2 10 ^3/uL (0-0.8); Eosinophils % (auto) 2.7 % (0.0-7.0); Hemoglobin 12.3 g/dL (12.2-16.2); Lymphocytes # (auto) 2.3 10 ^3/uL (0.4-5.4); Lymphocytes % (auto) 34.6 % (10.0-50.0); Mean Corpuscular Hemoglobin 30.1 pg (28.0-32.0); Mean Corpuscular Hgb Conc. 33.3 g/dL (32.0-36.0); Mean Corpuscular Volume 90.3 fL (80.0-100.0); Monocytes # (auto) 0.5 10 ^3/uL (0-1.3); Monocytes % (auto) 7.2 % (0.0-12.0); Neutrophils # (auto) 3.6 10 ^3/uL (1.6-8.6); Neutrophils % (auto) 54.6 % (37.0-80.0); Nucleated Red Blood Cells % 0.1 %; Red Cell Distribution Width 13.7 % (11.8-14.3); White Blood Cell 6.6 10^3/uL (4.4-10.8)
[2020-12-01 17:32] LABS: Calcium 9.1 mg/dL (8.5-10.1); Potassium 4.5 mmol/L (3.5-5.1)
[2020-12-01 17:34] LABS: BUN/Creatinine Ratio 12.4
[2020-12-01] MEDS: traZODone HCL 50 MG TAB PO SCH (21:59)
[2020-12-01 22:00] VITALS: BP 118/82
[2020-12-01] MEDS: SENNA 8.6 MG TAB PO SCH (22:04)
[2020-12-02 05:00] VITALS: BP 126/83
[2020-12-02] MEDS: SUCRALFATE 1 GM/10 ML ORAL SUSP PO SCH ×4 (06:32→22:21)
[2020-12-02 06:36] VITALS: BP 126/83
[2020-12-02 09:00] VITALS: BP 133/86
[2020-12-02] MEDS ORDERED: HEPARIN SODIUM (PORCINE) 5000 UNITS/ML 1ML VIAL ONE (09:16)
[2020-12-02] MEDS: DOCUSATE SOD 100 MG CAP PO SCH ×2 (09:22→22:00)
[2020-12-02] MEDS: PANTOPRAZOLE 40 MG TAB PO SCH ×2 (09:23→22:22)
[2020-12-02] MEDS: ALPRAZolam 0.5 MG TAB PO PRN ×3 (09:23→22:22)
[2020-12-02] MEDS: SERTRALINE HCL 50 MG TAB PO SCH (09:23)
[2020-12-02] MEDS: MULTIPLE VITAMIN TAB PO SCH (09:23)
[2020-12-02] MEDS: HEPARIN SODIUM (PORCINE) 5000 UNITS/ML 1ML VIAL SC SCH ×2 (09:28→22:28)
[2020-12-02 13:00] VITALS: BP 108/73
[2020-12-02 17:00] VITALS: BP 133/86
[2020-12-02 22:00] VITALS: BP 130/87
[2020-12-02] MEDS: traZODone HCL 50 MG TAB PO SCH (22:22)
[2020-12-02] MEDS: SENNA 8.6 MG TAB PO SCH (22:22)
[2020-12-03 05:00] VITALS: BP 142/78
[2020-12-03] MEDS: SUCRALFATE 1 GM/10 ML ORAL SUSP PO SCH ×4 (06:13→21:00)
[2020-12-03 09:00] VITALS: BP 133/78
[2020-12-03] MEDS: MULTIPLE VITAMIN TAB PO SCH (09:30)
[2020-12-03] MEDS: PANTOPRAZOLE 40 MG TAB PO SCH ×2 (09:30→21:00)
[2020-12-03] MEDS: SERTRALINE HCL 50 MG TAB PO SCH (09:30)
[2020-12-03] MEDS: ALPRAZolam 0.5 MG TAB PO PRN ×3 (09:30→21:00)
[2020-12-03] MEDS: HEPARIN SODIUM (PORCINE) 5000 UNITS/ML 1ML VIAL SC SCH ×2 (09:31→21:02)
[2020-12-03] MEDS: DOCUSATE SOD 100 MG CAP PO SCH ×2 (09:31→21:00)
[2020-12-03 13:00] VITALS: BP 107/73
[2020-12-03 17:00] VITALS: BP 111/77
[2020-12-03 17:42] VITALS: BP 111/77
[2020-12-03] MEDS: traZODone HCL 50 MG TAB PO SCH (21:01)
[2020-12-03] MEDS: SENNA 8.6 MG TAB PO SCH (21:06)
[2020-12-03 21:27] VITALS: BP 113/78
[2020-12-04] MEDS: ALPRAZolam 0.5 MG TAB PO PRN ×4 (04:10→22:02)
[2020-12-04 05:46] VITALS: BP 131/96
[2020-12-04] MEDS: SUCRALFATE 1 GM/10 ML ORAL SUSP PO SCH ×4 (06:02→22:02)
[2020-12-04 06:48] LABS: Hematocrit 37.6 % (36.0-46.0); Hemoglobin 12.7 g/dL (12.2-16.2); Mean Corpuscular Hemoglobin 30.2 pg (28.0-32.0); Mean Corpuscular Hgb Conc. 33.9 g/dL (32.0-36.0); Mean Corpuscular Volume 89.2 fL (80.0-100.0); Red Blood Cells 4.21 10^6/uL (4.0-5.20); Red Cell Distribution Width 13.4 % (11.8-14.3); White Blood Cell 5.6 10^3/uL (4.4-10.8)
[2020-12-04 06:54] LABS: Basophils % (manual) 0 (0.0-2.0); Blast Cells 0; Eosinophils % (manual) 0 (0-7); Metamyelocytes % 0; Promyelocytes % 0; Reactive Lymphocytes 0
[2020-12-04 06:55] LABS: BUN/Creatinine Ratio 17.1; Calcium 8.7 mg/dL (8.5-10.1); Magnesium 2.1 mg/dL (1.6-2.6)
[2020-12-04 07:40] LABS: Band Neutrophils % (manual) 8; Lymphocytes % (manual) 8 (10.0-50.0); Monocytes % (manual) 4 (0-12); Myelocytes % 1
[2020-12-04 09:00] VITALS: BP 141/92
[2020-12-04] MEDS: DOCUSATE SOD 100 MG CAP PO SCH ×2 (10:00→22:04)
[2020-12-04] MEDS: HEPARIN SODIUM (PORCINE) 5000 UNITS/ML 1ML VIAL SC SCH ×2 (11:01→22:03)
[2020-12-04] MEDS: MULTIPLE VITAMIN TAB PO SCH (11:01)
[2020-12-04] MEDS: PANTOPRAZOLE 40 MG TAB PO SCH ×2 (11:01→22:02)
[2020-12-04] MEDS: SERTRALINE HCL 50 MG TAB PO SCH (11:02)
[2020-12-04 13:00] VITALS: BP 134/91
[2020-12-04 17:00] VITALS: BP 128/81
[2020-12-04 22:00] VITALS: BP 130/79
[2020-12-04] MEDS: SENNA 8.6 MG TAB PO SCH (22:02)
[2020-12-04] MEDS: traZODone HCL 50 MG TAB PO SCH (22:02)
[2020-12-05 05:00] VITALS: BP 141/90
[2020-12-05] MEDS: SUCRALFATE 1 GM/10 ML ORAL SUSP PO SCH ×2 (06:29→12:15)
[2020-12-05 09:00] VITALS: BP 131/81
[2020-12-05] MEDS: HEPARIN SODIUM (PORCINE) 5000 UNITS/ML 1ML VIAL SC SCH (09:21)
[2020-12-05] MEDS: PANTOPRAZOLE 40 MG TAB PO SCH (09:26)
[2020-12-05] MEDS: ALPRAZolam 0.5 MG TAB PO PRN ×2 (09:26→15:32)
[2020-12-05] MEDS: MULTIPLE VITAMIN TAB PO SCH (09:27)
[2020-12-05] MEDS: SERTRALINE HCL 50 MG TAB PO SCH (09:27)
[2020-12-05] MEDS: DOCUSATE SOD 100 MG CAP PO SCH (09:36)
[2020-12-05 13:00] VITALS: BP 123/73
[2020-12-05 14:08] VITALS: BP 123/73
== END 2020-12-05 16:00 | disposition left against medical advice (07) | DRG 917 ==
LOC: ER 18:21 → EDUNIT# 18:21 → EDBD 18:21 → TELE 11-14 01:14 → TELE-CENTR 11-14 02:08
PROVIDERS: ADMIT Nurse Practitioner Family; ATTEND Internal Medicine
PROC: 5A09357 Assistance with Respiratory Ventilation, Less than 24 Consecutive Hours, Continuous Positive Airway Pressure (ICD-10-PCS; 2020-11-15)
PROC: 5A09357 Assistance with Respiratory Ventilation, Less than 24 Consecutive Hours, Continuous Positive Airway Pressure (ICD-10-PCS; 2020-11-17)
PROC: 5A09357 Assistance with Respiratory Ventilation, Less than 24 Consecutive Hours, Continuous Positive Airway Pressure (ICD-10-PCS; 2020-11-18)
PROC: 0DH63UZ Insertion of Feeding Device into Stomach, Percutaneous Approach (ICD-10-PCS; 2020-11-19)
PROC: 5A09357 Assistance with Respiratory Ventilation, Less than 24 Consecutive Hours, Continuous Positive Airway Pressure (ICD-10-PCS; 2020-11-19)
PROC: 0DB68ZX Excision of Stomach, Via Natural or Artificial Opening Endoscopic, Diagnostic (ICD-10-PCS; principal; 2020-11-19 12:24)
PROC: 5A09357 Assistance with Respiratory Ventilation, Less than 24 Consecutive Hours, Continuous Positive Airway Pressure (ICD-10-PCS; 2020-11-20)
PROC: 5A09357 Assistance with Respiratory Ventilation, Less than 24 Consecutive Hours, Continuous Positive Airway Pressure (ICD-10-PCS; 2020-11-22)
PROC: 5A09357 Assistance with Respiratory Ventilation, Less than 24 Consecutive Hours, Continuous Positive Airway Pressure (ICD-10-PCS; 2020-11-23)
PROC: 5A09357 Assistance with Respiratory Ventilation, Less than 24 Consecutive Hours, Continuous Positive Airway Pressure (ICD-10-PCS; 2020-11-24)
PROC: 5A09357 Assistance with Respiratory Ventilation, Less than 24 Consecutive Hours, Continuous Positive Airway Pressure (ICD-10-PCS; 2020-11-25)
PROC: 5A09357 Assistance with Respiratory Ventilation, Less than 24 Consecutive Hours, Continuous Positive Airway Pressure (ICD-10-PCS; 2020-11-26)
PROC: 5A09357 Assistance with Respiratory Ventilation, Less than 24 Consecutive Hours, Continuous Positive Airway Pressure (ICD-10-PCS; 2020-11-27)
PROC: 5A09357 Assistance with Respiratory Ventilation, Less than 24 Consecutive Hours, Continuous Positive Airway Pressure (ICD-10-PCS; 2020-11-28)
PROC: 5A09357 Assistance with Respiratory Ventilation, Less than 24 Consecutive Hours, Continuous Positive Airway Pressure (ICD-10-PCS; 2020-11-29)
PROC: 5A09357 Assistance with Respiratory Ventilation, Less than 24 Consecutive Hours, Continuous Positive Airway Pressure (ICD-10-PCS; 2020-11-30)
PROC: 5A09357 Assistance with Respiratory Ventilation, Less than 24 Consecutive Hours, Continuous Positive Airway Pressure (ICD-10-PCS; 2020-12-01)
PROC: 5A09357 Assistance with Respiratory Ventilation, Less than 24 Consecutive Hours, Continuous Positive Airway Pressure (ICD-10-PCS; 2020-12-02)
PROC: 5A09357 Assistance with Respiratory Ventilation, Less than 24 Consecutive Hours, Continuous Positive Airway Pressure (ICD-10-PCS; 2020-12-03)
PROC: 5A09357 Assistance with Respiratory Ventilation, Less than 24 Consecutive Hours, Continuous Positive Airway Pressure (ICD-10-PCS; 2020-12-04)
PROC: 5A09357 Assistance with Respiratory Ventilation, Less than 24 Consecutive Hours, Continuous Positive Airway Pressure (ICD-10-PCS; 2020-12-05)
DX: T40.2X2A Poisoning by other opioids, intentional self-harm, initial encounter (principal); A41.9 Sepsis, unspecified organism; J69.0 Pneumonitis due to inhalation of food and vomit; G92 Toxic encephalopathy; N17.0 Acute kidney failure with tubular necrosis; B49 Unspecified mycosis; J98.11 Atelectasis; F33.2 Major depressive disorder, recurrent severe without psychotic features; K70.30 Alcoholic cirrhosis of liver without ascites; N18.9 Chronic kidney disease, unspecified; B96.89 Other specified bacterial agents as the cause of diseases classified elsewhere; E27.8 Other specified disorders of adrenal gland; E87.6 Hypokalemia; E88.09 Other disorders of plasma-protein metabolism, not elsewhere classified; G47.33 Obstructive sleep apnea (adult) (pediatric); G89.4 Chronic pain syndrome; K21.9 Gastro-esophageal reflux disease without esophagitis; E11.22 Type 2 diabetes mellitus with diabetic chronic kidney disease; T40.3X1A Poisoning by methadone, accidental (unintentional), initial encounter; T39.092A Poisoning by salicylates, intentional self-harm, initial encounter; I12.9 Hypertensive chronic kidney disease with stage 1 through stage 4 chronic kidney disease, or unspecified chronic kidney disease; J44.9 Chronic obstructive pulmonary disease, unspecified; K29.70 Gastritis, unspecified, without bleeding; Z20.822 Contact with and (suspected) exposure to COVID-19; F15.10 Other stimulant abuse, uncomplicated; F14.90 Cocaine use, unspecified, uncomplicated; T39.1X2A Poisoning by 4-Aminophenol derivatives, intentional self-harm, initial encounter; K31.7 Polyp of stomach and duodenum; K22.8 Other specified diseases of esophagus; B95.8 Unspecified staphylococcus as the cause of diseases classified elsewhere; Z53.29 Procedure and treatment not carried out because of patient's decision for other reasons; T42.6X2A Poisoning by other antiepileptic and sedative-hypnotic drugs, intentional self-harm, initial encounter; Y92.89 Other specified places as the place of occurrence of the external cause; Z91.5 Personal history of self-harm; Z98.84 Bariatric surgery status
CPT/HCPCS: 36415; 51702; 71045; 71250; 74176; 80048; 80053; 80202; 80307; 80320; 80329; 81001; 82140; 82962; 83036; 83605; 83735; 84450; 84460; 85007; 85025; 85027; 85379; 85610; 85730; 86850; 86900; 86901; 87040; 87077; 87086; 87186; 87426; 93005; 93306; 94660; 94760; 94762; 96361; 96365; 96375; 99291; C9113; G0378; J0696; J2248; J2250; J2405; J2543; J2704; J3480; J3490